=== PATIENT | female | born 1980 | race Caucasian/White ===

== ENCOUNTER → 2025-02-27 | Day surgery (SDC) | payer BC ==
[2025-02-25 15:56] VITALS: BMI 25.0
[~2025-02-27] MED LIST: Pregnancy Control Solution IV ONE
[2025-02-27 12:28] VITALS: TEMP 97.8
[2025-02-27 12:33] VITALS: BP 109/73; PULSE 80; RESP 19
== END | disposition home or self-care (01) ==
LOC: FASU 08:27
PROVIDERS: ATTEND Internal Medicine Gastroenterology
PROC: 0DJD8ZZ Inspection of Lower Intestinal Tract, Via Natural or Artificial Opening Endoscopic (ICD-10-PCS; principal; 2025-02-27 11:02)
DX: Z12.11 Encounter for screening for malignant neoplasm of colon (principal); K64.1 Second degree hemorrhoids
CPT/HCPCS: 81025